=== PATIENT | male | born 1985 | race Caucasian/White ===

== ENCOUNTER 2017-11-13 00:50 | Emergency (ER) | payer OTHER ==
[~2017-11-13] VITALS: Ht 175.3 cm; Wt 75.0 kg
[2017-11-13 00:55] VITALS: TEMP 97.6
[2017-11-13 01:38] LABS: BASO # 0.1 (0.0-0.2); BASO % 0.5 % (0.0-2.0); EOS # 0.3 (0.0-0.7); EOS % 2.8 % (0-4.0); GRAN # 5.4 (1.4-6.5); GRAN % 53.8 % (42.2-75.2); HEMATOCRIT 46.8 % (42.0-52.0); HEMOGLOBIN 16.3 g/dl (13.5-18.0); MEAN CELL VOLUME 87 fl (80.0-100.0); MEAN CORPUSCULAR HEMOGLOBIN 30 pg (27.0-31.0); MEAN CORPUSCULAR HGB CONC 35 g/dl (33.0-37.0); MEAN PLATELET VOLUME 10.2 fl (7.4-10.4); MONO # 0.3 (0.1-0.6); MONO % 2.6 % (1.7-9.3); PLATELET COUNT 175 K/mm3 (130-400); RED BLOOD COUNT 5.39 M/mm3 (4.20-5.60); REDCELL DISTRIBUTION WIDTH-CV 13.1 % (11.5-14.5)
[2017-11-13 01:48] LABS: ALANINE AMINOTRANSFERASE 58 U/L (21-72); ALKALINE PHOSPHATASE 63 U/L (50-136); AST,SGOT 35 U/L (15-37); BILIRUBIN,TOTAL 0.6 mg/dL (0.0-1.0); BLOOD UREA NITROGEN 10 mg/dL (9-20); CALCIUM 9.5 mg/dL (8.4-10.2); CARBON DIOXIDE 26 mmol/L (22-30); GLUCOSE 93 mg/dL (74-106); POTASSIUM 3.5 mmol/L (3.4-5.0); SODIUM 139 mmol/L (137-145)
[2017-11-13 01:49] LABS: CHLORIDE 104 mmol/L (98-107)
[2017-11-13 01:51] LABS: ANION GAP 9 mmol/L (7-16)
[2017-11-13 02:05] LABS: TROPONIN-I < 0.012 ng/mL (0.000-0.034)
[2017-11-13] MEDS ORDERED: 00186-0370-20 IH (02:20)
[2017-11-13] MEDS ORDERED: KLONOPIN 1MG1 MG PO (02:21)
[2017-11-13] MEDS ORDERED: LAMICTAL200 MG PO (02:21)
[2017-11-13] MEDS ORDERED: ABILIFY30 MG PO (02:21)
[2017-11-13] MEDS ORDERED: MINIPRESS 1M1 MG/CAP PO (02:22)
[2017-11-13] MEDS ORDERED: AMOXICILLIN 50500 MG PO ×2 (02:22)
[2017-11-13] MEDS ORDERED: PROZAC60 MG (02:23)
[2017-11-13] MEDS ORDERED: DISALCID500 MG (02:24)
[2017-11-13] MEDS ORDERED: ALKA-SELTZER HE1 TEF PO (02:24)
[2017-11-13] MEDS ORDERED: INDERAL 10MG10 MG PO (02:25)
[2017-11-13] MEDS ORDERED: ZANTAC 150MG T150 MG PO (02:25)
[2017-11-13] MEDS ORDERED: DESYREL 100MG100 MG PO (02:25)
[2017-11-13] MEDS ORDERED: ZESTRIL30 MG PO (02:25)
[2017-11-13] MEDS ORDERED: ZOFRAN ODT4 MG PO (02:26)
[2017-11-13 04:43] VITALS: BP 99/59
[2017-11-13 05:14] VITALS: PULSE 60
== END 2017-11-13 05:14 | disposition home or self-care (01) ==
LOC: COL.ER 00:50
PROVIDERS: Emergency Medicine
DX: E86.0 Dehydration (principal); R06.02 Shortness of breath; R07.9 Chest pain, unspecified; R42 Dizziness and giddiness; F20.9 Schizophrenia, unspecified; F43.10 Post-traumatic stress disorder, unspecified; F17.210 Nicotine dependence, cigarettes, uncomplicated; K21.9 Gastro-esophageal reflux disease without esophagitis; R09.89 Other specified symptoms and signs involving the circulatory and respiratory systems; Z90.89 Acquired absence of other organs
CPT/HCPCS: J7030

== ENCOUNTER 2018-04-17 14:04 | Day surgery (SDC) | payer OTHER ==
[~2018-04-17] VITALS: Ht 175.3 cm; Wt 83.1 kg
[~2018-04-17 14:04] MED LIST: 00186-0370-20 IH; ABILIFY30 MG PO; ALKA-SELTZER HE1 TEF PO; AMOXICILLIN 50500 MG PO; DESYREL 100MG100 MG PO; DISALCID500 MG; INDERAL 10MG10 MG PO; KLONOPIN 1MG1 MG PO; LAMICTAL200 MG PO; MINIPRESS 1M1 MG/CAP PO; PROZAC60 MG; ZANTAC 150MG T150 MG PO; ZESTRIL30 MG PO; ZOFRAN ODT4 MG PO
[2018-04-17] MEDS ORDERED: PROTONIX20 MG PO (14:29)
[2018-04-17 14:34] VITALS: BP 119/88; PULSE 89; TEMP 98.6
[2018-04-17 15:25] VITALS: BP 108/78; PULSE 88
--- NOTE | 2018-04-17 15:25 | NUR ---
Pt to [facility] via cart from ENDO. Pt awake and alert. Denies pain or nausea. Pt ambulates to recliner with stand by assistance. Warm blanket given. Will continue to monitor. Coffee given per request. Call light within reach.
[2018-04-17 15:40] VITALS: BP 111/80; PULSE 85
--- NOTE | 2018-04-17 15:40 | NUR ---
Pt resting. Denies needs. Call light within reach.
[2018-04-17 15:55] VITALS: BP 118/82; PULSE 82
--- NOTE | 2018-04-17 15:55 | NUR ---
Pt continues to rest. Denies needs. Call light within reach.
--- NOTE | 2018-04-17 16:00 | NUR ---
Discharge instructions reviewed. Pt voices understanding. IV site discontinued with all parts intact. Pt up to dress. Call light within reach.
--- NOTE | 2018-04-17 16:15 | NUR ---
Pt escorted to private car via wheel chair. Pt accompanied home by his and mother in law.
== END 2018-04-17 16:15 | disposition home or self-care (01) ==
LOC: SDCO 14:04
DX: K21.0 Gastro-esophageal reflux disease with esophagitis (principal); K92.1 Melena; K59.00 Constipation, unspecified; K64.1 Second degree hemorrhoids; F41.9 Anxiety disorder, unspecified; F32.9 Major depressive disorder, single episode, unspecified; F17.210 Nicotine dependence, cigarettes, uncomplicated; Z88.5 Allergy status to narcotic agent; Z88.8 Allergy status to other drugs, medicaments and biological substances
CPT/HCPCS: OP; J2704; J7030

== ENCOUNTER 2018-06-04 20:57 | Emergency (ER) | payer OTHER ==
[~2018-06-04] VITALS: Ht 175.3 cm; Wt 84.1 kg
[~2018-06-04 20:57] MED LIST changes: +PROTONIX20 MG PO
[2018-06-04 21:01] VITALS: TEMP 97.6
[2018-06-04] MEDS ORDERED: TYLENOL 500MG500 MG PO (21:04)
[2018-06-04 21:27] LABS: COLLECTION METHOD CLEAN CATCH
[2018-06-04 21:36] LABS: ALBUMIN 4.2 gm/dL (3.5-5.0); BILIRUBIN,TOTAL 0.5 mg/dL (0.0-1.0); CREATININE, serum 1.3 (0.66-1.25); HEMATOCRIT 43.6 % (42.0-52.0); HEMOGLOBIN 15.2 g/dl (13.5-18.0); MEAN CELL VOLUME 87 fl (80.0-100.0); MEAN CORPUSCULAR HEMOGLOBIN 30 pg (27.0-31.0); MEAN CORPUSCULAR HGB CONC 35 g/dl (33.0-37.0); MEAN PLATELET VOLUME 9.9 fl (7.4-10.4); PLATELET COUNT 168 K/mm3 (130-400); POTASSIUM 3.5 mmol/L (3.4-5.0); RED BLOOD COUNT 5.04 M/mm3 (4.20-5.60); REDCELL DISTRIBUTION WIDTH-CV 12.3 % (11.5-14.5); TOTAL PROTEIN 7.1 gm/dL (6.4-8.2)
[2018-06-04 21:40] LABS: MUCOUS Present /lpf; PH 5 (5-8); SQUAMOUS EPITHELIAL None Seen /hpf; URINE APPEARANCE Clear; URINE BACTERIA None Seen /hpf; URINE BILIRUBIN Negative (NEGATIVE); URINE BLOOD Negative (NEGATIVE); URINE COLOR Yellow; URINE GLUCOSE Negative (NEGATIVE); URINE KETONE Trace (NEGATIVE); URINE LEUKOCYTE ESTERASE Negative (NEGATIVE); URINE NITRATE Negative (NEGATIVE); URINE PROTEIN(semi-quant) Negative (NEGATIVE); URINE RBC 0-2 /hpf
[2018-06-04 21:58] LABS: C-REACTIVE PROTEIN 1.1 mg/dL (0.0-0.9)
[2018-06-04 22:13] LABS: EOSINOPHIL 3 % (0-4); LYMPHOCYTE 42 % (20.0-51.0); NEUTROPHILS 51 % (42.0-75.2); PLATELET ESTIMATE DECREASED (NORMAL)
[2018-06-04 23:27] VITALS: BP 112/66; PULSE 62
== END 2018-06-04 23:46 | disposition home or self-care (01) ==
LOC: COL.ER 20:57
PROVIDERS: Family Medicine
DX: M54.9 Dorsalgia, unspecified (principal); F17.210 Nicotine dependence, cigarettes, uncomplicated
CPT/HCPCS: J1170; J1885; J2405; J3010; J7030

== ENCOUNTER 2018-06-21 09:12 | Emergency (ER) | payer OTHER ==
[~2018-06-21] VITALS: Ht 175.3 cm; Wt 84.1 kg
[~2018-06-21 09:12] MED LIST changes: +TYLENOL 500MG500 MG PO
[2018-06-21 09:22] VITALS: TEMP 96.9
[2018-06-21 10:05] LABS: HEMATOCRIT 43.3 % (42.0-52.0); HEMOGLOBIN 14.7 g/dl (13.5-18.0); MEAN CELL VOLUME 88 fl (80.0-100.0); MEAN CORPUSCULAR HEMOGLOBIN 30 pg (27.0-31.0); MEAN CORPUSCULAR HGB CONC 34 g/dl (33.0-37.0); MEAN PLATELET VOLUME 9.9 fl (7.4-10.4); PLATELET COUNT 185 K/mm3 (130-400); RED BLOOD COUNT 4.93 M/mm3 (4.20-5.60); REDCELL DISTRIBUTION WIDTH-CV 12.2 % (11.5-14.5)
[2018-06-21 10:08] LABS: COLLECTION METHOD CLEAN CATCH
[2018-06-21 10:14] LABS: PH 6 (5-8); SQUAMOUS EPITHELIAL None Seen /hpf; URINE APPEARANCE Clear; URINE BACTERIA None Seen /hpf; URINE BILIRUBIN Negative (NEGATIVE); URINE BLOOD Negative (NEGATIVE); URINE COLOR Yellow; URINE GLUCOSE Negative (NEGATIVE); URINE KETONE Negative (NEGATIVE); URINE LEUKOCYTE ESTERASE Negative (NEGATIVE); URINE NITRATE Negative (NEGATIVE); URINE PROTEIN(semi-quant) Negative (NEGATIVE); URINE RBC 0-2 /hpf; URINE UROBILINOGEN Negative (NEGATIVE)
[2018-06-21 10:15] LABS: BILIRUBIN,TOTAL 0.4 mg/dL (0.0-1.0); C-REACTIVE PROTEIN 1.1 mg/dL (0.0-0.9); CALCIUM 9.2 mg/dL (8.4-10.2); CREATININE, serum 1.25 (0.66-1.25); TOTAL PROTEIN 7.1 gm/dL (6.4-8.2)
[2018-06-21 10:36] LABS: BAND 2 % (0-10); NEUTROPHILS 48 % (42.0-75.2); PLATELET ESTIMATE NORMAL (NORMAL)
[2018-06-21 10:37] LABS: LYMPHOCYTE 48 % (20.0-51.0)
[2018-06-21] MEDS ORDERED: LIDODERM 5% PATC1 EA TP (10:45)
[2018-06-21 11:49] VITALS: BP 113/80; PULSE 59
== END 2018-06-21 11:49 | disposition home or self-care (01) ==
LOC: COL.ER 09:12
PROVIDERS: Physician Assistant
DX: R10.9 Unspecified abdominal pain (principal); F17.210 Nicotine dependence, cigarettes, uncomplicated